=== PATIENT | female | born 1975 | race Caucasian/White ===

== ENCOUNTER 2019-07-29 22:10 | Emergency (ER) | payer OTHER ==
[~2019-07-29] VITALS: Ht 162.6 cm; Wt 54.4 kg
[2019-07-29] MEDS ORDERED: FLUT12AE8 IH (22:25)
[2019-07-29] MEDS ORDERED: ALBUTEROL SULFATE 8 GM HFA.AER.AD IH PRN (23:00)
[2019-07-29 23:20] LABS: BASOPHILS # (AUTO) 0.1 K/uL (0.0-8.0); BASOPHILS % (AUTO) 0.9 % (0.0-2.0); EOSINOPHILS # (AUTO) 0.4 K/uL (0.0-0.7); EOSINOPHILS % (AUTO) 3.6 % (0.0-7.0); HEMATOCRIT 39.4 % (31.2-41.9); HEMOGLOBIN 13.1 g/dL (10.9-14.3); LYMPHOCYTES # (AUTO) 2.4 K/uL (20.0-40.0); LYMPHOCYTES % (AUTO) 23.1 % (20.5-51.5); MEAN CORPUSCULAR HEMOGLOBIN 29.1 uug (24.7-32.8); MEAN CORPUSCULAR HGB CONC 33 g/dL (32.3-35.6); MEAN CORPUSCULAR VOLUME 87.9 fL (75.5-95.3); MONOCYTES # (AUTO) 0.9 K/uL (2.0-10.0); MONOCYTES % (AUTO) 8.1 % (0.0-11.0); NEUTROPHILS # (AUTO) 6.8 K/uL (1.8-8.9); NEUTROPHILS % (AUTO) 64.3 % (38.5-71.5); PLATELET COUNT (AUTO) 212 K/uL (179-408); RED BLOOD CELL COUNT(AUTO) 4.49 MIL/uL (3.63-4.92); WHITE BLOOD COUNT (AUTO) 10.5 K/uL (3.8-11.8)
--- NOTE | 2019-07-29 23:20 | NUR ---
Xray at bedside.
[2019-07-29 23:30] LABS: CREATININE 1.1 mg/dL (0.6-1.3); POTASSIUM 4.1 mmol/L (3.5-5.1)
--- NOTE | 2019-07-30 00:18 | NUR ---
Pt provided urine sample, sent to lab.
[2019-07-30] MEDS ORDERED: IOHEXOL 350 100 ML INFUS..BTL ONE (00:52)
[2019-07-30] MEDS ORDERED: SWABABLE VALVE TRANSFER SET EA MC ONE (00:52)
[2019-07-30] MEDS ORDERED: IV NORMAL SALINE 250 ML IV ONE (00:52)
[2019-07-30 00:59] LABS: *URINE HCG, QUAL NEGATIVE (NEGATIVE)
--- NOTE | 2019-07-30 01:05 | NUR ---
Pt out of ER for CT.
--- NOTE | 2019-07-30 01:17 | NUR ---
Pt back to ER from CT.
[2019-07-30] MEDS ORDERED: IV NORMAL SALINE 500 ML BAG IV ONE (01:45)
[2019-07-30] MEDS ORDERED: levoFLOXacin 750 MG TABLET PO ONE (02:30)
[2019-07-30] MEDS ORDERED: CEFTRIAXONE 1 G in IV DEXTROSE 5% 50 ML IV ONE (02:30)
[2019-07-30] MEDS ORDERED: CEFTRIAXONE 1 G VIAL ONE (02:38)
[2019-07-30] MEDS ORDERED: levoFLOXacin 750 MG TABLET ONE (02:38)
--- NOTE | 2019-07-30 03:02 | NUR ---
Patient discharged to home in stable condition. Written and verbal after care instructions given. Patient verbalizes understanding of instructions. Stressed follow up or return to ER for worsening s/s. Pt ambulated out of ER with steady gait, no acute signs of distress, VSS, all belongings taken, IV site discontinued.
[2019-07-30 03:05] VITALS: BP 112/58
== END 2019-07-30 03:05 | disposition home or self-care (01) ==
LOC: ER 22:12
DX: J18.9 Pneumonia, unspecified organism (principal); J45.909 Unspecified asthma, uncomplicated; Z20.828 Contact with and (suspected) exposure to other viral communicable diseases; E28.39 Other primary ovarian failure
CPT/HCPCS: 36415 ×2; 71045; 71275; 80048; 84484 ×2; 84703; 85025; 93005; 96374; 99285; J0696; J7060; Q9967; U0003; 70030-TC; J3535; J7040; J7050